=== PATIENT | female | born 1935 | race Caucasian/White ===

== ENCOUNTER 2016-08-26 09:37 | Outpatient (CLI) | payer MEDICARE, OTHER ==
--- NOTE | 2016-08-27 08:41 | Mammography Report ---
DIGITAL BILATERAL SCREENING MAMMOGRAM: 08/26/2016 CLINICAL HISTORY: An 81-year-old female in for routine screening mammogram. Patient's family histor y indicates two sisters with breast cancer at age 31 and 42 and many cousins with breast cancer. Pat debra had breast surgeries. She has had prophylactic mastectomy in 1978. Patient has bilateral breas t prostheses. COMPARISON: 08/17/2007, 09/10/2008, 10/29/2009, 11/22/2012, 04/08/2013, 02/12/2015 TECHNIQUE: Craniocaudad and oblique lateral views of each breast were obtained with Milo Full Fie ld digital mammography. To compliment the exam, craniocaudad and oblique lateral Min views were d one. Bilateral subglandular silicone breast prostheses are seen. FINDINGS: Heterogeneously dense breasts are noted. No significant clusters of calcification are see n. No significant masses are noted. There is some scarring seen in the inner aspect of the left nimisha ast with minor skin deformity. These are related to prior biopsies. This area is unchanged as anabela red to 02/12/2015. IMPRESSION: 1. BILATERAL SUBGLANDULAR SILICONE BREAST PROSTHESES ARE NOTED. BREASTS APPEAR RADIOGRAPHICALLY DELGADO IGN. 2. MILD SCARRING IS DETECTED IN THE INNER ASPECT OF THE LEFT BREAST, UNCHANGED COMPARED TO PRECED ING EXAMS. BIRADS CATEGORY 2 - BENIGN FINDINGS. RECOMMENDATIONS: Annual bilateral screening mammography. Even though patient has had prophylactic m astectomies, there is still breast tissue noted bilaterally in each breast. Because of the patient's strong family history of breast cancer, suggest considering screening breast MRI in six months. [place] [employer] [employer] recommends in patient with strong family history of breast cancer to do annual s creening with mammography followed six months later by bilateral breast MRI. STANDARD QUALIFYING STATEMENTS 1. This examination was reviewed with the aid of Computer-Aided Detection (CAD). 2. A negative or benign imaging report should not delay biopsy if clinically suspicious findings are present. Consider surgical consultation if warranted. More than 5% of cancers are not identified by sameer james. 3. Dense breasts may obscure an underlying neoplasm. JOB #: [id number] EXT JOB #:[id number]
== END 2016-08-26 09:38 | disposition home or self-care (01) ==
LOC: DI 09:37
PROVIDERS: ATTEND Family Medicine
DX: Z12.31 Encounter for screening mammogram for malignant neoplasm of breast (principal); Z80.3 Family history of malignant neoplasm of breast; Z90.13 Acquired absence of bilateral breasts and nipples; Z98.82 Breast implant status
CPT/HCPCS: 77067

== ENCOUNTER 2017-12-06 11:56 | Outpatient (CLI) | payer MEDICARE, OTHER ==
--- NOTE | 2017-12-07 09:47 | Mammography Report ---
Reason: SCREENING MAMMO Procedure Date: 12/06/2017 Accession Number: [id number] / [id number] Procedure: MGN - Screening Mammo Dig w/Implants CPT Code: FULL RESULT: EXAM: Screening Mammo Dig w/Implants DATE: 12/06/2017 12:29 PM CLINICAL HISTORY: 82-year-old female with history of biopsy, breast reduction surgery and breast augmentation bilaterally with a family history of breast cancer in the mother at age 78 and sisters at age 32 and 44 respectively. TECHNIQUE: Bilateral CC and MLO views were obtained. Bilateral implant displaced views in CC and MLO projection were also obtained. COMPARISON: 08/26/2016, 02/12/2015, 02/05/2014, 11/22/2012. FINDINGS: The breasts demonstrate heterogeneously dense fibroglandular parenchyma bilaterally. Bilateral breast implants are again seen. No suspicious masses, clustered microcalcifications, or regions of architectural distortion are identified. IMPRESSION: Benign findings RECOMMENDATION: Routine annual screening unless otherwise clinically indicated. BIRADS CATEGORY 2: Benign findings STANDARD QUALIFYING STATEMENTS: 1. This examination was not reviewed with the aid of Computer-Aided Detection (CAD). 2. A negative or benign imaging report should not delay biopsy if clinically suspicious findings are present. Consider surgical consultation if warrented. More than 5% of cancers are not identified by imaging. 3. Dense breasts may obscure an underlying neoplasm. 4. This examination was reviewed without the aid of 3D breast imaging (tomosynthesis).
== END 2017-12-06 11:57 | disposition home or self-care (01) ==
LOC: DI.N 11:56
PROVIDERS: ATTEND Family Medicine
DX: Z12.31 Encounter for screening mammogram for malignant neoplasm of breast (principal); Z80.3 Family history of malignant neoplasm of breast
CPT/HCPCS: 77067

== ENCOUNTER 2018-01-04 09:25 | Outpatient (CLI) | payer MEDICARE, OTHER ==
[2018-01-04 12:59] LABS: ALBUMIN 4.1 g/dL (3.2-5.5); ALBUMIN/GLOBULIN RATIO 1.5 (1.0-2.2); ALKALINE PHOSPHATASE 60 IU/L (42-121); ALT ALANINE AMINOTRANSFERASE 16 IU/L (10-60); AST ASPARTATE AMINOTRANSFERASE 20 IU/L (10-42); BILIRUBIN,TOTAL 0.9 mg/dL (0.2-1.0); BUN - BLOOD UREA NITROGEN 16 mg/dL (6-20); CALCIUM 10.2 mg/dL (8.5-10.3); CARBON DIOXIDE - CO2 25 mmol/L (21-32); CHLORIDE 104 mmol/L (101-111); CHOL/HDL RATIO 4.8 (<4.4); CHOLESTEROL 281 mg/dL; CREATININE 0.8 mg/dL (0.4-1.0); GFR - MDRD 69 (>89); GLUCOSE 95 mg/dL (70-100); HDL CHOLESTEROL 59 mg/dL; LDL CHOLESTEROL,CALCULATED 192 mg/dL; LDL/HDL RATIO 3.3 (<4.4); SODIUM 138 mmol/L (135-145); TOTAL PROTEIN 6.8 g/dL (6.7-8.2); VLDL CHOLESTEROL 30 mg/dL
[2018-01-04 13:00] LABS: BASOPHILS % (AUTO) 0.1 %; EOSINOPHILS # (AUTO) 0.1 10^3/uL (0.0-0.7); EOSINOPHILS % (AUTO) 2.8 %; LYMPHOCYTES # (AUTO) 1.2 10^3/uL (1.5-3.5); LYMPHOCYTES % (AUTO) 25.6 %; MEAN CORPUSCULAR HEMOGLOBIN 32.1 pg (27.0-31.0); MEAN CORPUSCULAR HGB CONC 34.2 g/dL (32.0-36.0); MEAN CORPUSCULAR VOLUME 93.8 fL (81.0-99.0); MEAN PLATELET VOLUME 8.8 fL (7.9-10.8); MONOCYTES # (AUTO) 0.4 10^3/uL (0.0-1.0); MONOCYTES % (AUTO) 7.5 %; PLT - PLATELET COUNT 284 10^3/uL (130-450); RED BLOOD COUNT 4.38 10^6/uL (4.20-5.40); RED CELL DISTRIBUTION WIDTH 13.3 % (12.0-15.0); WHITE BLOOD COUNT 4.7 x10^3/uL (4.8-10.8)
== END 2018-01-04 09:26 | disposition home or self-care (01) ==
LOC: LAB.WCP 09:25
PROVIDERS: ATTEND Family Medicine
DX: E78.5 Hyperlipidemia, unspecified (principal); K21.9 Gastro-esophageal reflux disease without esophagitis
CPT/HCPCS: 36415; 80053; 80061; 83721; 85025

== ENCOUNTER 2018-02-15 08:42 | Outpatient (CLI) | payer MEDICARE, OTHER ==
[2018-02-15 14:59] LABS: ALBUMIN 3.9 g/dL (3.2-5.5); ALBUMIN/GLOBULIN RATIO 1.5 (1.0-2.2); ALKALINE PHOSPHATASE 67 IU/L (42-121); ALT ALANINE AMINOTRANSFERASE 19 IU/L (10-60); AST ASPARTATE AMINOTRANSFERASE 21 IU/L (10-42); BILIRUBIN,TOTAL 0.6 mg/dL (0.2-1.0); BUN - BLOOD UREA NITROGEN 15 mg/dL (6-20); CALCIUM 9.5 mg/dL (8.5-10.3); CARBON DIOXIDE - CO2 27 mmol/L (21-32); CHLORIDE 107 mmol/L (101-111); CHOL/HDL RATIO 2.5 (<4.4); CHOLESTEROL 148 mg/dL; CREATININE 0.8 mg/dL (0.4-1.0); GFR - MDRD 69 (>89); GLUCOSE 101 mg/dL (70-100); HDL CHOLESTEROL 59 mg/dL; LDL CHOLESTEROL,CALCULATED 75 mg/dL; LDL/HDL RATIO 1.3 (<4.4); SODIUM 141 mmol/L (135-145); TOTAL PROTEIN 6.5 g/dL (6.7-8.2); VLDL CHOLESTEROL 14 mg/dL
== END 2018-02-15 23:59 | disposition home or self-care (01) ==
LOC: LAB.WCP 08:42
PROVIDERS: ATTEND Family Medicine
DX: E78.5 Hyperlipidemia, unspecified (principal)
CPT/HCPCS: 36415; 80053; 80061; 83721

== ENCOUNTER 2018-06-29 14:13 | Outpatient (CLI) | payer MEDICARE, OTHER ==
[2018-06-29 19:36] LABS: BASOPHILS % (AUTO) 0.3 %; EOSINOPHILS # (AUTO) 0.2 10^3/uL (0.0-0.7); EOSINOPHILS % (AUTO) 2.4 %; HGB - HEMOGLOBIN 13.7 g/dL (12.0-16.0); LYMPHOCYTES # (AUTO) 1.7 10^3/uL (1.5-3.5); LYMPHOCYTES % (AUTO) 26.6 %; MEAN CORPUSCULAR HEMOGLOBIN 31.8 pg (27.0-31.0); MEAN CORPUSCULAR HGB CONC 32.7 g/dL (32.0-36.0); MEAN CORPUSCULAR VOLUME 97.3 fL (81.0-99.0); MEAN PLATELET VOLUME 8.4 fL (7.9-10.8); MONOCYTES # (AUTO) 0.6 10^3/uL (0.0-1.0); MONOCYTES % (AUTO) 8.7 %; PLT - PLATELET COUNT 300 10^3/uL (130-450); RED CELL DISTRIBUTION WIDTH 12.8 % (12.0-15.0); WHITE BLOOD COUNT 6.4 x10^3/uL (4.8-10.8)
[2018-06-29 20:34] LABS: % IRON SATURATION 28 % (20-50); ALBUMIN 3.9 g/dL (3.2-5.5); ALBUMIN/GLOBULIN RATIO 1.4 (1.0-2.2); ALKALINE PHOSPHATASE 70 IU/L (42-121); ALT ALANINE AMINOTRANSFERASE 21 IU/L (10-60); AST ASPARTATE AMINOTRANSFERASE 21 IU/L (10-42); BILIRUBIN,TOTAL 0.6 mg/dL (0.2-1.0); BUN - BLOOD UREA NITROGEN 17 mg/dL (6-20); CALCIUM 9.8 mg/dL (8.5-10.3); CARBON DIOXIDE - CO2 27 mmol/L (21-32); CHLORIDE 104 mmol/L (101-111); CHOL/HDL RATIO 2.4 (<4.4); CHOLESTEROL 168 mg/dL; CREATININE 0.8 mg/dL (0.4-1.0); GFR - MDRD 69 (>89); GLUCOSE 94 mg/dL (70-100); HDL CHOLESTEROL 69 mg/dL; IRON 88 ug/dL (28-170); LDL CHOLESTEROL,CALCULATED 67 mg/dL; SODIUM 139 mmol/L (135-145); TOTAL IRON BINDING CAPACITY 314 ug/dL (250-450); TOTAL PROTEIN 6.6 g/dL (6.7-8.2); TRANSFERRIN 224 mg/dL (192-382); VLDL CHOLESTEROL 32 mg/dL
[2018-06-29 20:39] LABS: FERRITIN 16.6 ng/mL (11.0-306.8)
== END 2018-06-29 14:14 | disposition home or self-care (01) ==
LOC: LAB.WCP 14:13
PROVIDERS: ATTEND Family Medicine
DX: E78.5 Hyperlipidemia, unspecified (principal); Z79.899 Other long term (current) drug therapy; L65.9 Nonscarring hair loss, unspecified
CPT/HCPCS: 36415; 80053; 80061; 82728; 83540; 83721; 84443; 84466; 84481; 85025

== ENCOUNTER 2019-11-04 13:00 | Outpatient (CLI) | payer MEDICARE, OTHER ==
--- NOTE | 2019-11-04 16:06 | Ultrasound Report ---
PROCEDURE: Ext Limited Non Vascular INDICATIONS: LT UPPER ARM, BONE SODT TISSUE TECHNIQUE: Real-time scanning was performed of the left upper arm, with image documentation. COMPARISON: None. FINDINGS: Multiple grayscale and color Doppler images of the left upper arm at the patient directed palpable area of concern were acquired. There is an isoechoic to subcutaneous fat mass with indistinc t margins measuring 2.9 x 0.7 x 2.3 cm. It is noncompressible. No internal vascularity. No associated mass effect or architectural distortion. Normal overlying skin. IMPRESSION: 2.9 cm subcutaneous soft tissue mass that appears isoechoic to subcutaneous fat. 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 However, other benign and possible malignant etiologies not excluded. Recommend continue d clinical surveillance with follow-up imaging as indicated. Reviewed by: Lowell Vergara MD on 11/04/2019 4:05 PM PDT Approved by: Lowell Vergara MD on 11/04/2019 4:05 PM PDT Station ID: [id number]
== END 2019-11-04 13:01 | disposition home or self-care (01) ==
LOC: DI 13:00
PROVIDERS: ATTEND Family Medicine
DX: R93.6 Abnormal findings on diagnostic imaging of limbs (principal); R93.89 Abnormal findings on diagnostic imaging of other specified body structures
CPT/HCPCS: 76882

== ENCOUNTER 2020-08-09 08:00 | Outpatient (CLI) | payer MEDICARE, OTHER ==
[2020-08-09 17:39] LABS: BASOPHILS # (AUTO) 0.1 10^3/uL (0.0-0.1); BASOPHILS % (AUTO) 1.3 %; EOSINOPHILS # (AUTO) 0.1 10^3/uL (0.0-0.7); HCT - HEMATOCRIT 43.1 % (37.0-47.0); LYMPHOCYTES # (AUTO) 1.3 10^3/uL (1.5-3.5); MEAN CORPUSCULAR HEMOGLOBIN 31.7 pg (27.0-31.0); MEAN CORPUSCULAR HGB CONC 32.5 g/dL (32.0-36.0); MEAN CORPUSCULAR VOLUME 97.7 fL (81.0-99.0); MEAN PLATELET VOLUME 9.9 fL (7.9-10.8); MONOCYTES # (AUTO) 0.5 10^3/uL (0.0-1.0); MONOCYTES % (AUTO) 9.1 %; NEUTROPHILS # (AUTO) 3.6 10^3/uL (1.5-6.6); NEUTROPHILS % (AUTO) 63.4 %; PLT - PLATELET COUNT 309 10^3/uL (130-450); RED BLOOD COUNT 4.41 10^6/uL (4.20-5.40); RED CELL DISTRIBUTION WIDTH 12.4 % (12.0-15.0); WHITE BLOOD COUNT 5.6 x10^3/uL (4.8-10.8)
[2020-08-09 18:00] LABS: ALBUMIN 4.4 g/dL (3.2-5.5); ALBUMIN/GLOBULIN RATIO 1.7 (1.0-2.2); ALKALINE PHOSPHATASE 62 IU/L (42-121); ALT ALANINE AMINOTRANSFERASE 28 IU/L (10-60); AST ASPARTATE AMINOTRANSFERASE 25 IU/L (10-42); BILIRUBIN,TOTAL 0.5 mg/dL (0.2-1.0); BUN - BLOOD UREA NITROGEN 16 mg/dL (6-20); CARBON DIOXIDE - CO2 26 mmol/L (21-32); CHLORIDE 106 mmol/L (101-111); CHOL/HDL RATIO 2.6 (<4.4); CHOLESTEROL 194 mg/dL; CREATININE 0.8 mg/dL (0.4-1.0); GFR - MDRD 68 (>89); GLUCOSE 111 mg/dL (70-100); HDL CHOLESTEROL 74 mg/dL; LDL CHOLESTEROL,CALCULATED 97 mg/dL; LDL/HDL RATIO 1.3 (<4.4); POTASSIUM 4.6 mmol/L (3.5-5.0); SODIUM 140 mmol/L (135-145); TRIGLYCERIDES 115 mg/dL; VLDL CHOLESTEROL 23 mg/dL
== END 2020-08-09 23:59 | disposition home or self-care (01) ==
LOC: LAB.WCP 08:00
PROVIDERS: ATTEND Family Medicine
DX: E78.5 Hyperlipidemia, unspecified (principal); M85.88 Other specified disorders of bone density and structure, other site
CPT/HCPCS: 36415; 80053; 80061; 83721; 85025

== ENCOUNTER 2020-09-02 12:22 | Outpatient (CLI) | payer MEDICARE, OTHER ==
--- NOTE | 2020-09-02 13:09 | XRAY Report ---
PROCEDURE: Cervical Spine 2 View INDICATIONS: DDD, cervical spine TECHNIQUE: 4 view(s) of the cervical spine were acquired. COMPARISON: None. FINDINGS: Bones: No fractures or dislocations to the T1 level. The lateral masses of C1 appear intact on the odontoid view. No suspicious bony lesions. There is moderately severe to severe degenerative disc d isease from C5 through C7, most pronounced at C6-C7. Subluxation is not associated. Soft tissues: No prevertebral soft tissue swelling. IMPRESSION: Low cervical spine degenerative disc disease is present to the degree that spinal and fo raminal stenosis likely is associated. No trauma found. Reviewed by: Elmer Vargas MD on 09/02/2020 1:08 PM PDT Approved by: Elmer Vargas MD on 09/02/2020 1:08 PM PDT Station ID: [id number]
== END 2020-09-02 12:23 | disposition home or self-care (01) ==
LOC: DI 12:22
PROVIDERS: ATTEND Family Medicine
DX: M50.323 Other cervical disc degeneration at C6-C7 level (principal)

== ENCOUNTER 2020-09-03 13:22 | Outpatient (CLI) | payer MEDICARE, OTHER ==
--- NOTE | 2020-09-04 13:39 | Mammography Report ---
BILATERAL DIGITAL SCREENING MAMMOGRAM 3D/2D WITH AUGMENTATION: 09/03/2020 CLINICAL: Routine screening. Comparison is made to exams dated: 09/26/2018 ultrasound, 09/26/2018 mammogram, 12/06/2017 mammogram, mammogram, 02/12/2015 mammogram, and 11/22/2012 mammogram - [facility]. The tissue of both breasts is predominantly fatty. Bilateral breast implants are stable. No significant masses, calcifications, or other findings are seen in either breast. There has been no significant interval change. IMPRESSION: NEGATIVE There is no mammographic evidence of malignancy. A 1 year screening mammogram is recommended. This exam was interpreted at Station ID: [id number]. NOTE: For mammograms, a report in lay terms will be sent to the patient. Approximately 15% of breast malignancies will not be visualized mammographically. In the management of a palpable breast mass, a negative mammogram must not discourage biopsy of a clinically suspicious lesion. Electronically Signed By: Kendell Bowman M.D., jr/fuad:09/03/2020 14:52:36 ACR BI-RADS Category 1: Negative 3341F PARENCHYMAL PATTERN: (F) - The breast(s) demonstrate(s) diffuse fatty replacement. BI-RADS CATEGORY: (1) - 1 RECOMMENDATION: (ANNUAL) - Recommend routine annual screening mammography. [id number] 1 year screening LATERALITY: (B)
== END 2020-09-03 13:23 | disposition home or self-care (01) ==
LOC: DI 13:22
DX: Z12.31 Encounter for screening mammogram for malignant neoplasm of breast (principal)

== ENCOUNTER 2020-09-03 13:24 | Outpatient (CLI) | payer MEDICARE, OTHER ==
--- NOTE | 2020-09-03 17:28 | DEXA Report ---
PROCEDURE: Dexa Spine and/or Hip INDICATIONS: BONE DISORDER TECHNIQUE: Dual energy x-ray absorptiometry (DXA) was performed on a [employer] System. Regions measur ed are the AP Spine, femoral neck, and if needed forearm. COMPARISON: None. FINDINGS: Lumbar Spine: Bone Mineral Density 0.955 g/cm/cm,T score -1.0, moderate osteopenia Left Hip: Bone Mineral Density 0.636 g/cm/cm,T score -2.9, osteoporosis Mild Femoral Neck: Bone Mineral Density 0.728 g/cm/cm, T score -2.2, moderate to severe osteopenia (T score greater or equal to -1.0: NORMAL) (T score from -1.1 to -2.4: OSTEOPENIA) (T score less than or equal to -2.5 to: OSTEOPOROSIS) Impression: 1. Osteoporosis within left hip as well as moderate to severe osteopenia in the left femoral neck. Patients with diagnosis of osteoporosis or osteopenia should have regular bone mineral density assess ment. For those eligible for Medicare, routine testing is allowed once every 2 years. Testing frequ ency can be increased for patients who have rapidly progressing disease or for those who are receivin g medical therapy to restore bone mass. Reviewed by: Katiuska Wong MD on 09/03/2020 5:27 PM PDT Approved by: Katiuska Wong MD on 09/03/2020 5:27 PM PDT Station ID: [id number]
== END 2020-09-03 13:25 | disposition home or self-care (01) ==
LOC: DI 13:24
PROVIDERS: ATTEND Family Medicine
DX: M81.0 Age-related osteoporosis without current pathological fracture (principal)

== ENCOUNTER 2022-07-13 13:01 | Outpatient (CLI) | payer MEDICARE, OTHER ==
--- NOTE | 2022-07-13 17:45 | XRAY Report ---
PROCEDURE: Hips 2V BILAT INDICATIONS: HIP PAIN TECHNIQUE: 3 views of the hip were acquired. COMPARISON: None. FINDINGS: Bones: No fractures or dislocations. No suspicious bony lesions. Mild to moderate bilateral hip j oint osteoarthritic changes are seen worse on the right side. No evidence of avascular necrosis of fe moral head. Soft tissues: No suspicious soft tissue calcifications or masses. IMPRESSION: No acute bony abnormality. Right worse than left bilateral hip joint osteoarthritis. No hip fracture or dislocation. No evidence of avascular necrosis. Reviewed by: Tj Hernandez MD on 07/13/2022 5:44 PM PDT Approved by: Tj Hernandez MD on 07/13/2022 5:44 PM PDT Station ID: [id number]
--- NOTE | 2022-07-13 17:47 | XRAY Report ---
PROCEDURE: Lumbar Spine Complete INDICATIONS: BACK PAIN TECHNIQUE: 4 views of the lumbar spine were acquired. COMPARISON: None. FINDINGS: Bones: 5 [id number] vertebrae are present. There is mild levoscoliosis of lumbar spine centere d at L3 level. 6 mm retrolisthesis of L1 on L2 is seen. Degenerative endplate changes and loss of dis c height throughout lumbar spine is seen most notably at L4-5 level. Bilateral facet arthrosis at L4- 5 and L5-S1 levels are also seen.. No vertebral body compression fractures. No suspicious bony lesi ons. Soft tissues: Overlying bowel gas pattern is normal. No suspicious soft tissue calcifications. IMPRESSION: Degenerative disc disease throughout lumbar spine as above. No acute compression fractur e. Mild to moderate levoscoliosis centered at L3 level. Grade 1 retrolisthesis of L1 on L2. Reviewed by: Tj Hernandez MD on 07/13/2022 5:45 PM PDT Approved by: Tj Hernandez MD on 07/13/2022 5:45 PM PDT Station ID: [id number]
== END 2022-07-13 13:02 | disposition home or self-care (01) ==
LOC: DI 13:01
PROVIDERS: ATTEND Physician Assistant
DX: M51.16 Intervertebral disc disorders with radiculopathy, lumbar region (principal); M43.16 Spondylolisthesis, lumbar region; M16.0 Bilateral primary osteoarthritis of hip

== ENCOUNTER 2023-02-19 14:12 | Outpatient (CLI) | payer MEDICARE, OTHER ==
--- NOTE | 2023-02-19 16:06 | DEXA Report ---
PROCEDURE: Dexa Spine and/or Hip INDICATIONS: OSTEOPOROSIS TECHNIQUE: Dual energy x-ray absorptiometry (DXA) was performed on a [employer] System. Regions measur ed are the AP Spine, femoral neck, and if needed forearm. COMPARISON: DEXA 09/03/2020 FINDINGS: Lumbar Spine: Bone Mineral Density 0.996 g/cm/cm,T score -1.4. Since the most recent prior study, there has been a statistically significant increase in bone mineral density by 6.0 percent. Left Femoral Neck: Bone Mineral Density 0.765 g/cm/cm, T score -2.0. Left Hip: Bone Mineral Density 0.707 g/cm/cm,T score -2.4. Since the most recent prior study, there has been a statistically significant increase in bone mineral density by 11.2 percent. (T score greater or equal to -1.0: NORMAL) (T score from -1.1 to -2.4: OSTEOPENIA) (T score less than or equal to -2.5 to: OSTEOPOROSIS) Impression: By WHO criteria, this patient has low bone density (osteopenia). Interval statistical increase in bone mineral density of the lumbar spine. Interval statistical incre ase in bone mineral density of the hip. Patients with diagnosis of osteoporosis or osteopenia should have regular bone mineral density assess ment. For those eligible for Medicare, routine testing is allowed once every 2 years. Testing frequ ency can be increased for patients who have rapidly progressing disease or for those who are receivin g medical therapy to restore bone mass. Reviewed by: Bradnon Pink MD on 02/19/2023 4:04 PM [facility] Approved by: Brandon Pink MD on 02/19/2023 4:04 PM PST Station ID: [id number]
== END 2023-02-19 14:13 | disposition home or self-care (01) ==
LOC: DI 14:12
PROVIDERS: ATTEND Physician Assistant
DX: M85.89 Other specified disorders of bone density and structure, multiple sites (principal)